=== PATIENT | female | born 1990 | race Caucasian/White ===

== ENCOUNTER 2016-11-10 15:23 | Emergency (ER) | payer OTHER ==
[~2016-11-10] VITALS: Ht 154.9 cm; Wt 63.5 kg
--- NOTE | 2016-11-10 15:34 | NUR ---
DR SAUCEDO TALKED TO PATIENT. PT IS AWAKE AND VERBALLY RESPONSIVE - REFUSING TO STAY AND BE EVALUATED. AFTER TALKING TO PT, STATED THAT IT WAS OK TO LET HER GO, SHE IS ALERT AT THE PRESENT TIME. PT WAS GIVEN A MS OF SOCKS REQUESTED BY PT - SHE WAS OTHERWISE WALKING BAREFOOT.
[2016-11-10 15:37] VITALS: BP 116/59
== END 2016-11-10 15:39 | disposition left against medical advice (07) ==
LOC: ER 15:23
DX: F18.10 Inhalant abuse, uncomplicated (principal); T65.91XA Toxic effect of unspecified substance, accidental (unintentional), initial encounter; Y92.89 Other specified places as the place of occurrence of the external cause
CPT/HCPCS: A4663

== ENCOUNTER 2017-01-26 18:34 | Inpatient (IN) | payer OTHER ==
[~2017-01-26] VITALS: Ht 152.4 cm; Wt 47.6 kg
[2017-01-26] MEDS ORDERED: LORAZEPAM 1 MG TABLET PO PRN ×2 (21:00)
[2017-01-26] MEDS ORDERED: CLONIDINE HCL 0.1 MG TABLET PO PRN (21:00)
[2017-01-26] MEDS ORDERED: THIAMINE HCL 200 MG/2 ML VIAL IM ONE (21:00)
[2017-01-26] MEDS ORDERED: HYDROXYZINE PAMOATE 25 MG CAPSULE PO PRN (21:00)
[2017-01-26] MEDS ORDERED: ONDANSETRON 4 MG/2 ML VIAL IM PRN (21:00)
[2017-01-26] MEDS ORDERED: MIRALAX 17 GM POWD.PACK PO PRN (21:00)
[2017-01-26] MEDS ORDERED: MAGNESIUM HYDROXIDE 30 ML LIQUID UDC PO PRN (21:00)
[2017-01-26] MEDS ORDERED: DICYCLOMINE HCL 20 MG TABLET PO PRN (21:00)
[2017-01-26] MEDS ORDERED: diphenhydrAMINE 50 MG CAPSULE PO PRN (21:00)
[2017-01-26] MEDS ORDERED: MAG HYDROX/AL HYDROX/SIMETH 30 ML LIQUID UDC PO PRN (21:00)
[2017-01-26] MEDS ORDERED: ONDANSETRON ODT 4 MG TAB.RAPDIS SL PRN (21:00)
[2017-01-26] MEDS ORDERED: LORAZEPAM 2 MG/1 ML VIAL IM PRN (21:00)
[2017-01-26] MEDS ORDERED: IBUPROFEN 400 MG TABLET PO PRN (21:00)
[2017-01-26] MEDS ORDERED: ACETAMINOPHEN 325 MG TABLET PO PRN (21:00)
[2017-01-26] MEDS ORDERED: LOPERAMIDE HCL 2 MG CAPSULE PO PRN ×2 (21:00)
--- NOTE | 2017-01-26 21:00 | NUR ---
PRN TYLENOL, SEROQUEL, ZOFRAN Pt. complains of sleeplessness, LB pain /, nausea. PRN TYLENOL, SEROQUEL, ZOFRAN given as ordered. Safety measures in place : bed on lowest position with side rails x2 up for safety, call light within reach. Will continue to monitor closely and offer help. Addendum: 01/27/17 at 0604 by ALIN GOODWIN RN Wrong time. Meds given at 22:00
--- NOTE | 2017-01-26 21:15 | NUR ---
PRE- ADMISSION NOTE Pt is a 26 y/o female who was found on the floor in the Intake Unit. Vitals signs taken right away : IC=487/56, HR=84, pulse is strong, RR=16, unlabored and even, Spo2=98% with RA, Temp=98.2. Pt. 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 Pt has NKA, FULL CODE, on Reg.diet, reported a PMH of anxiety, depression, Bipolar, LB pain because of the fall on 01/23/2017. Pt. was in [facility] today and in October 2016 in [facility] for OD, but not hospitalized. Pt. is able to provide urine for UDS.
--- NOTE | 2017-01-26 21:25 | NUR ---
RN note Seroquel Pt stated that she takes Seroquel 100 mg PO HS. Notified Dr. Man and ordered to continue the medication while inpatient.
[2017-01-26 21:41] LABS: BASOPHILS # (AUTO) 0.2 K/uL (0.0-8.0); BASOPHILS % (AUTO) 1.1 % (0.0-2.0); EOSINOPHILS % (AUTO) 0.1 % (0.0-7.0); HEMATOCRIT 40.6 % (37-47); HEMOGLOBIN 13.5 G/DL (12.0-16.0); LYMPHOCYTES # (AUTO) 2.7 K/UL (0.8-4.8); LYMPHOCYTES % (AUTO) 16.9 % (20.5-51.5); MEAN CORPUSCULAR HEMOGLOBIN 30.5 UUG (27.0-31.0); MEAN CORPUSCULAR HGB CONC 33 g/dL (32.0-37.0); MEAN CORPUSCULAR VOLUME 91.9 FL (81.0-99.0); MONOCYTES # (AUTO) 0.5 K/UL (0.1-1.30); MONOCYTES % (AUTO) 3.2 % (0.0-11.0); NEUTROPHILS # (AUTO) 12.5 K/UL (1.8-8.9); NEUTROPHILS % (AUTO) 78.7 % (38.5-71.5); PLATELET COUNT (AUTO) 236 K/UL (150-450); RED BLOOD CELL COUNT(AUTO) 4.42 MIL/UL (4.2-5.4); WHITE BLOOD COUNT (AUTO) 15.9 K/UL (4.0-11.2)
[2017-01-26 21:49] LABS: BILIRUBIN,TOTAL 0.3 mg/dL (0.2-1.0); CREATININE 0.8 mg/dL (0.6-1.3); MAGNESIUM 1.6 mg/dL (1.8-2.4); POTASSIUM 3.6 mmol/L (3.5-5.1); TOTAL PROTEIN, SERUM 7.6 g/dL (6.4-8.2)
[2017-01-26 21:57] LABS: *AMPHETAMINE, URINE NEGATIVE (NEGATIVE); *BARBITURATE, URINE NEGATIVE (NEGATIVE); *CANNABINOID, URINE NEGATIVE (NEGATIVE); *COCCAINE, URINE NEGATIVE (NEGATIVE); *OPIATE, URINE NEGATIVE (NEGATIVE); *PHENCYCLIDINE SCREEN,URINE NEGATIVE (NEGATIVE); THYROID STIMULATING HORMONE 0.366 mIU/mL (0.358-3.740)
[2017-01-26] MEDS: QUETIAPINE FUMARATE 100 MG TABLET PO SCH (22:03)
[2017-01-26] MEDS ORDERED: ACETAMINOPHEN 325 MG TABLET ONE (22:04)
[2017-01-26] MEDS ORDERED: ONDANSETRON ODT 4 MG TAB.RAPDIS ONE (22:04)
[2017-01-26] MEDS ORDERED: QUETIAPINE FUMARATE 100 MG TABLET ONE (22:05)
[2017-01-26] MEDS ORDERED: MAGNESIUM OXIDE 400 MG TABLET PO ONE (22:30)
--- NOTE | 2017-01-26 22:30 | NUR ---
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 Pt has NKA, FULL CODE, on Reg.diet, reported a PMH of anxiety, depression, Bipolar, LB pain because of the fall on 01/23/2017. Pt. was in ER [facility] today and in October 2016 in [facility] for OD, but not hospitalized. Pt denies having a primary care physician but reported having a psych doctor , who prescribed her [place], Prozac, Seroquel, she also denies vaccinations, believes it doesnt work. Pt arrived without medication from home . Upon assessment pt is a/o x 3, however pt is intoxicated aeb lingering odor of alcohol. Skin turgor indicates adequate hydration. PERRLA noted. Lung auscultations clear in all lobes. Vitals signs are as follows: BP: 106/56 HR: 84 T: 98.2 O2 Sat:98% RR=16 Breathing is even and unlabored. Bowel sounds present in all four quadrants, and abdomen is soft and non distended. Pt reported last having a bowel movement yesterday morning (01/25/17). At this time pt is calm and cooperative with plan of care. Pt has LB pain 11/29, because of fall on 01/23/2017. Pt was encouraged to notify staff of any changes in condition or of any concerns. Pt verbalized an understanding ,CIWA: 6. Body search done by CHEMICAL ANALYST, skin check done by female RN. Pt. arrives on wheelchair, oriented to the unit and her room, placed on 1:1 for unsteady gait. Safety measures in place : bed on lowest position with side rails x2 up for safety, call light within reach. Will continue to monitor closely and offer help. SUBSTANCE USE HISTORY : ETOH/RUM/VODKA 500ml QD PO last 12 mo., last use on 01/26/2017 , uses since 2006 DUST OFF 4cans QD inhales last 2 years, last use 01/26/2017, Uses since 2013 Pt. smokes 10 cigarettes daily Tx HISTORY : X14 Detox. facilities X14 Rehab. Facilities. Multiple hospitalizations because of OD. FAMILY HISTORY : Parents and two brothers are in a good health.
--- NOTE | 2017-01-26 23:00 | NUR ---
REASSESSMENT TYLENOL, SEROQUEL, ZOFRAN Pt. is sleeping, RR=16 , unlabored and even. Safety measures in place : bed on lowest position with side rails x2 up for safety, call light within reach. Will continue to monitor closely and offer help.
[2017-01-26] MEDS ORDERED: QUET100T PO (23:01)
[2017-01-26] MEDS ORDERED: LITH300C2 PO (23:01)
[2017-01-26] MEDS ORDERED: FLUO40CA8 PO (23:01)
[2017-01-26] MEDS ORDERED: LITH600C PO (23:01)
[2017-01-26] MEDS ORDERED: ACET-2154 PO (23:01)
[2017-01-26 23:23] LABS: *URINE HCG, QUAL NEGATIVE (NEGATIVE)
[2017-01-27] VITALS: BP 106/56
--- NOTE | 2017-01-27 | NUR ---
HISTORY OF SEIZURES Pt. stated to have multiple seizures due to "DUST OFF" OVERDOSES
[2017-01-27 04:00] VITALS: BP 90/51
--- NOTE | 2017-01-27 06:31 | NUR ---
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 Pt has NKA, FULL CODE, on Reg.diet, reported a PMH of anxiety, depression, Bipolar, LB pain because of the fall on 01/23/2017. Pt. reported having a psych doctor , who prescribed her [place], Prozac, Seroquel, she also denies vaccinations, believes it doesnt work. At this time pt is calm and cooperative with plan of care. Pt has LB pain 08/29, because of fall on 01/23/2017. Pt was encouraged to notify staff of any changes in condition or of any concerns. Pt verbalized an understanding , placed on 1:1 for unsteady gait. Pt remains compliant with the treatment plan. PRN ZOFRAN, TYLENOL given during my shift. V/S remain WNL. RR=16, even and unlabored, lungs clear upon auscultation, abdomen soft and non- distended. Pt denies nausea, vomiting and diarrhea. LAST CIWA= 6 at 0400 , SLMUBO=3855 ml, voided x1 , slept 7 hours. Safety measures in place : bed on lowest position with side rails x2 up for safety, call light within reach. Will continue to monitor closely and offer help.
--- NOTE | 2017-01-27 07:46 | NUR ---
Start of Shift Snack Bar Cook received report on 26 year old female admitted on 01/26/17 for Inhalant and ETOH detoxification. Pt has NKA, full code and regular diet. Reports PMH of Bipolar, Anxiety, Depression and complains of lower back pain related to fall 4 days ago. Pt has a history of seizures related to her inhalant use. Pt is currently on 1:1 status for fall precautions. Pt on fall and seizure precautions. Pt was administered Tylenol and Zofran during the NOC, per report. Snack Bar Cook encounters pt in her bed preparing to go to [facility]. Snack Bar Cook assessed pts ability to ambulate. Pt is has a steady gait and will no longer need 1:1 staffing, as witnessed by RENETTA Martinez. Pt is A/O and stating she feels much better then yesterday, my back is much better. Pt does endorse silly somewhat sick. Pt is calm and cooperative and makes needs known. Bed in low position, wheels locked, side rails up x2 and call light within reach. All safety measures in place according to hospital policy.
[2017-01-27] MEDS ORDERED: TUBERCULIN,PURIF.PROT.DERIV. 5 TU/0.1 ML TEST ID ONE (09:00)
[2017-01-27] MEDS: FOLIC ACID 1 MG TABLET PO SCH (09:21)
[2017-01-27] MEDS: THIAMINE HCL 100 MG TABLET PO SCH (09:22)
[2017-01-27] MEDS: MULTIVITAMINS,THERAPEUTIC TABLET PO SCH (09:22)
[2017-01-27 09:30] VITALS: BP 91/56
[2017-01-27] MEDS ORDERED: LORAZEPAM 1 MG TABLET PO PRN ×2 (10:15)
[2017-01-27] MEDS: FLUOXETINE HCL 20 MG CAPSULE PO SCH (10:46)
[2017-01-27] MEDS: LITHIUM CARBONATE 300 MG CAPSULE PO SCH (10:46)
[2017-01-27 13:05] VITALS: BP 106/55
[2017-01-27] MEDS: LORAZEPAM 1 MG TABLET PO SCH ×3 (13:53→21:00)
--- NOTE | 2017-01-27 14:07 | NUR ---
Therapist prompted client about group times. Client stated she wants to rest today.
[2017-01-27] MEDS: GABAPENTIN 300 MG CAPSULE PO SCH (16:26)
[2017-01-27 16:39] VITALS: BP 93/54
[2017-01-27 18:55] LABS: *BILIRUBIN,URIN NEGATIVE (NEGATIVE); *BLOOD, URINE 3+ (NEGATIVE); *CLARITY,URINE CLOUDY (CLEAR); *COLOR,URINE YELLOW (YELLOW); *KETONES,URINE NEGATIVE (NEGATIVE); *PROTEIN,URINE 1+ (NEGATIVE); *UROBILINOGEN,URINE 0.2 E.U./dl (NORMAL); LEUKOCYTE ESTERASE ,URINE 1+ (NEGATIVE); NITRITE, URINE NEGATIVE (NEGATIVE); UGLUCOSE NEGATIVE (NEGATIVE)
--- NOTE | 2017-01-27 19:08 | NUR ---
End of Shift Discotheque Dancer provided report on 26 year old female admitted on 01/26/17 for Inhalant and ETOH detoxification. No further comments questions or concerns voiced. Pt has NKA, full code and regular diet. Reports PMH of Bipolar, Anxiety, Depression and complains of lower back pain related to fall 4 days ago. Pt has a history of seizures related to her inhalant use. Pt on fall and seizure precautions. Pt is calm and cooperative and makes needs known. Pt questioned if Ativan made her more anxious and is going to monitor her response to next dose. Bed in low position, wheels locked, side rails up x2 and call light within reach. All safety measures in place according to hospital policy.
--- NOTE | 2017-01-27 19:09 | NUR ---
Start of shift note Received report from day shift nurse. Pt is a 26 yo F, A+Ox4, presenting to [facility] for ETOH dependence. Pt has NKA, is on Full code status, and on Regular diet. Pt is on Fall and Seizure precautions. Pt has HX of Seizure, Bipolar, Anxiety, Depression, and Lower back pain. Pt is on 5 day Ativan taper, tolerated well. No s/s of distress noted at this time. Respirations even and unlabored. Will continue to monitor.
[2017-01-27 19:16] LABS: BACTERIA,URINE MODERATE /HPF (NONE SEEN); SQUAMOUS EPITHELIAL CELL,UR MODERATE /HPF (NONE SEEN)
[2017-01-27 20:15] VITALS: BP 97/47
[2017-01-27] MEDS: NITROFURANTOIN/NITROFURAN MAC 100 MG CAPSULE PO SCH (21:00)
[2017-01-27] MEDS ORDERED: LITHIUM CARBONATE 300 MG CAPSULE PO SCH (21:00)
[2017-01-27] MEDS ORDERED: GABAPENTIN 300 MG CAPSULE PO SCH (21:00)
[2017-01-27] MEDS ORDERED: LITHIUM CARBONATE PO SCH (21:00)
[2017-01-27] MEDS: QUETIAPINE FUMARATE 100 MG TABLET PO SCH (21:00)
[2017-01-28 00:57] VITALS: BP 90/46
[2017-01-28 04:09] VITALS: BP 92/54
--- NOTE | 2017-01-28 06:53 | NUR ---
End of shift note Pt is a 26 yo Female, A+Ox4, presenting to [facility] for ETOH dependence. Pt has NKA, is on Full code status, and on Regular diet. Pt is on Fall and Seizure precautions. Pt has HX of Seizure, Bipolar, Anxiety, Depression, and Lower back pain. Pt is on 5 day Ativan taper, tolerated well. Pt slept for a total of 11 HRS. Last CIWA: 2 @0400. No s/s of distress noted at this time. Respirations even and unlabored. Will endorse to day shift nurse.
--- NOTE | 2017-01-28 07:44 | NUR ---
START OF SHIFT NOTE patient is alert and orientated X4. Vital signs are stable. Patient is awake walking around the unit this morning. Patient is on a 5 day ativan taper and tolerating well. Patient slept 11 hours per night nurse. Last CIWA 2 per night nurse with no PRNs given. All safety measures in place. Will continue to monitor.
[2017-01-28 07:49] LABS: BASOPHILS # (AUTO) 0.1 K/uL (0.0-8.0); BASOPHILS % (AUTO) 0.8 % (0.0-2.0); EOSINOPHILS # (AUTO) 0.2 K/uL (0.0-0.7); EOSINOPHILS % (AUTO) 2.9 % (0.0-7.0); HEMATOCRIT 42.1 % (37-47); HEMOGLOBIN 13.9 G/DL (12.0-16.0); LYMPHOCYTES # (AUTO) 2.1 K/UL (0.8-4.8); LYMPHOCYTES % (AUTO) 31.3 % (20.5-51.5); MEAN CORPUSCULAR HEMOGLOBIN 30.5 UUG (27.0-31.0); MEAN CORPUSCULAR HGB CONC 33 g/dL (32.0-37.0); MEAN CORPUSCULAR VOLUME 92.7 FL (81.0-99.0); MONOCYTES # (AUTO) 0.7 K/UL (0.1-1.30); MONOCYTES % (AUTO) 10.6 % (0.0-11.0); NEUTROPHILS # (AUTO) 3.5 K/UL (1.8-8.9); NEUTROPHILS % (AUTO) 54.4 % (38.5-71.5); PLATELET COUNT (AUTO) 190 K/UL (150-450); RED BLOOD CELL COUNT(AUTO) 4.54 MIL/UL (4.2-5.4); WHITE BLOOD COUNT (AUTO) 6.6 K/UL (4.0-11.2)
[2017-01-28 08:51] VITALS: BP 91/54
[2017-01-28] MEDS ORDERED: LORAZEPAM 1 MG TABLET PO SCH (09:00)
[2017-01-28] MEDS: MULTIVITAMINS,THERAPEUTIC TABLET PO SCH (09:25)
[2017-01-28] MEDS: FLUOXETINE HCL 20 MG CAPSULE PO SCH (09:25)
[2017-01-28] MEDS: LITHIUM CARBONATE 300 MG CAPSULE PO SCH (09:25)
[2017-01-28] MEDS: FOLIC ACID 1 MG TABLET PO SCH (09:25)
[2017-01-28] MEDS: THIAMINE HCL 100 MG TABLET PO SCH (09:25)
[2017-01-28] MEDS: GABAPENTIN 300 MG CAPSULE PO SCH (09:25)
[2017-01-28] MEDS: NITROFURANTOIN/NITROFURAN MAC 100 MG CAPSULE PO SCH (09:25)
--- NOTE | 2017-01-28 09:32 | NUR ---
PRN VISTARIL Patient having increased anxiety. patient crying and wanting to leave. Vistaril given. will continue to monitor.
--- NOTE | 2017-01-28 10:05 | NUR ---
PRN REASSESSMENT patient expresses a slight decrease in anxiety after Vistaril was given. Will continue to monitor
[2017-01-28 10:10] LABS: HEPATITIS B SURFACE AG Negative (Negative)
--- NOTE | 2017-01-28 11:30 | NUR ---
AMA NOTE Patient left AMA. patient refused to comply with treatment. patient educated about the risks and consequences of leaving AMA. Patient verbalized understanding but was adamant about leaving. Multiple staff members including Dr. Lopez, patient advocator, and nurses attempted to reason with the patient but was unsuccessful. Vital signs are within normal limits, skin intact, and patient denies any suicidal or homicidal ideations. Patient s psychiatrist and MD were notified and aware. Patient was given a list of community resources. AMA forms explained and signed. All belongings returned to the patient.Patient left the facility AMA on 01/28/17 at 11:30
[2017-01-29] MEDS ORDERED: LORAZEPAM 1 MG TABLET PO SCH (09:00)
[2017-01-30] MEDS ORDERED: LORAZEPAM 1 MG TABLET PO SCH (09:00)
[2017-01-31] MEDS ORDERED: LORAZEPAM 1 MG TABLET PO SCH (09:00)
== END 2017-01-28 13:30 | disposition left against medical advice (07) | DRG 894 ==
LOC: SRC 20:53
PROVIDERS: ADMIT Internal Medicine; ATTEND Internal Medicine
PROC: HZ2ZZZZ Detoxification Services for Substance Abuse Treatment (ICD-10-PCS; principal; 2017-01-26)
PROC: HZ31ZZZ Individual Counseling for Substance Abuse Treatment, Behavioral (ICD-10-PCS; 2017-01-27)
DX: F10.230 Alcohol dependence with withdrawal, uncomplicated (principal); F31.62 Bipolar disorder, current episode mixed, moderate; Y90.2 Blood alcohol level of 40-59 mg/100 ml; F18.10 Inhalant abuse, uncomplicated; Z59.0 Homelessness; F17.210 Nicotine dependence, cigarettes, uncomplicated; Z79.899 Other long term (current) drug therapy; F41.9 Anxiety disorder, unspecified; D72.829 Elevated white blood cell count, unspecified
CPT/HCPCS: 36415; 80307; 83690; 83735; 84443; 84703; 85025; 86580; 86592; 86705; 86803; 87086; 87340; 87806; G0480; J3411; Q0162

== ENCOUNTER 2017-01-28 19:41 | Inpatient (IN) | payer OTHER ==
[~2017-01-28] VITALS: Ht 152.4 cm; Wt 54.0 kg
[~2017-01-28 19:41] MED LIST: ACET-2154 PO; FLUO40CA8 PO; LITH300C2 PO; LITH600C PO
[2017-01-28 20:32] VITALS: BP 110/59
--- NOTE | 2017-01-28 20:32 | NUR ---
PRE-ADMISSION NOTE VS BP-110/59 T-97.8 P-85 R-16 PA-0/10. SpO2 AT 97% IN RA. PATIENT HAS NO ALLERGY TO FOOD OR MEDICATIONS. PATIENT REPORTS NO SEIZURE HISTORY. PATIENT ABLE TO ANSWERS QUESTIONS. PATIENT STATES SHE'S TIRED. PATIENT AMBULATORY AND GAIT STEADY. PATIENT DISCUSSED UNIT POLICIES, Q2 HOURS VS AND SMOKING POLICIES. WILL CONTINUE ADMISSION ON 3RD FLOOR.
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
[2017-01-28] MEDS ORDERED: diphenhydrAMINE 50 MG CAPSULE PO PRN (21:15)
[2017-01-28] MEDS ORDERED: CLONIDINE HCL 0.1 MG TABLET PO PRN (21:15)
[2017-01-28] MEDS ORDERED: HYDROXYZINE PAMOATE 25 MG CAPSULE PO PRN (21:15)
[2017-01-28] MEDS ORDERED: MIRALAX 17 GM POWD.PACK PO PRN (21:15)
[2017-01-28] MEDS ORDERED: MAGNESIUM HYDROXIDE 30 ML LIQUID UDC PO PRN (21:15)
[2017-01-28] MEDS ORDERED: ACETAMINOPHEN 325 MG TABLET PO PRN (21:15)
[2017-01-28] MEDS ORDERED: LORAZEPAM 1 MG TABLET PO PRN ×2 (21:15)
[2017-01-28] MEDS ORDERED: MAG HYDROX/AL HYDROX/SIMETH 30 ML LIQUID UDC PO PRN (21:15)
[2017-01-28] MEDS ORDERED: LORAZEPAM 2 MG/1 ML VIAL IM PRN (21:15)
[2017-01-28] MEDS ORDERED: DICYCLOMINE HCL 20 MG TABLET PO PRN (21:15)
[2017-01-28] MEDS ORDERED: ONDANSETRON ODT 4 MG TAB.RAPDIS SL PRN (21:15)
[2017-01-28] MEDS ORDERED: LOPERAMIDE HCL 2 MG CAPSULE PO PRN ×2 (21:15)
[2017-01-28] MEDS ORDERED: IBUPROFEN 400 MG TABLET PO PRN (21:15)
[2017-01-28] MEDS ORDERED: THIAMINE HCL 200 MG/2 ML VIAL IM ONE (21:15)
[2017-01-28] MEDS ORDERED: ONDANSETRON 4 MG/2 ML VIAL IM PRN (21:15)
--- NOTE | 2017-01-28 21:15 | NUR ---
THIAMINE INJECTION REFUSED PATIENT REFUSED THIAMINE INJECTION. EXPLAINED RISKS/BENEFITS BUT STILL REFUSED. WILL CONTINUE TO MONITOR
--- NOTE | 2017-01-28 21:15 | NUR ---
RN note HCG Qual Urine test was not ordered because patient was here as an admission last 01/26/2017 and tested negative for the test.
[2017-01-28 22:04] LABS: ETHANOL < 3 MG/DL (0-0)
[2017-01-28 22:05] LABS: BASOPHILS # (AUTO) 0.1 K/uL (0.0-8.0); BASOPHILS % (AUTO) 0.6 % (0.0-2.0); EOSINOPHILS # (AUTO) 0.2 K/uL (0.0-0.7); EOSINOPHILS % (AUTO) 1.9 % (0.0-7.0); HEMATOCRIT 40.8 % (37-47); HEMOGLOBIN 13.6 G/DL (12.0-16.0); LYMPHOCYTES # (AUTO) 2.9 K/UL (0.8-4.8); LYMPHOCYTES % (AUTO) 28.6 % (20.5-51.5); MEAN CORPUSCULAR HEMOGLOBIN 31.1 UUG (27.0-31.0); MEAN CORPUSCULAR HGB CONC 33 g/dL (32.0-37.0); MEAN CORPUSCULAR VOLUME 93.1 FL (81.0-99.0); MONOCYTES % (AUTO) 9.6 % (0.0-11.0); NEUTROPHILS # (AUTO) 5.8 K/UL (1.8-8.9); NEUTROPHILS % (AUTO) 59.3 % (38.5-71.5); PLATELET COUNT (AUTO) 186 K/UL (150-450); RED BLOOD CELL COUNT(AUTO) 4.39 MIL/UL (4.2-5.4)
[2017-01-28 22:09] LABS: ALANINE AMINOTRANSFERASE 24 U/L (14-59); ALKALINE PHOSPHATASE 82 U/L (50-136); AMYLASE 41 U/L (25-115); ASPARTATE AMINOTRANSFERASE 21 U/L (15-37); BILIRUBIN,TOTAL 0.2 mg/dL (0.2-1.0); CARBON DIOXIDE 30 mmol/L (21-32); CHLORIDE 103 mmol/L (98-107); CREATININE 0.9 mg/dL (0.6-1.3); GLUCOSE 131 mg/dL (74-106); LIPASE 175 U/L (73-393); MAGNESIUM 1.9 mg/dL (1.8-2.4); POTASSIUM 3.4 mmol/L (3.5-5.1); TOTAL PROTEIN, SERUM 7.1 g/dL (6.4-8.2); UREA NITROGEN, BLOOD 12 mg/dL (7-18)
[2017-01-28 22:34] LABS: THYROID STIMULATING HORMONE 2.152 mIU/mL (0.358-3.740)
[2017-01-29] VITALS: BP 96/51
[2017-01-29 04:00] VITALS: BP 90/56
[2017-01-29 04:56] LABS: *AMPHETAMINE, URINE NEGATIVE (NEGATIVE); *BARBITURATE, URINE NEGATIVE (NEGATIVE); *CANNABINOID, URINE NEGATIVE (NEGATIVE); *COCCAINE, URINE NEGATIVE (NEGATIVE); *OPIATE, URINE NEGATIVE (NEGATIVE); *PHENCYCLIDINE SCREEN,URINE NEGATIVE (NEGATIVE)
--- NOTE | 2017-01-29 07:14 | NUR ---
END OF SHIFT PATIENT HAD UNEVENTFUL EVENT. PATIENT SLEPT 8 HOURS. FLUID INTAKE 1,328 ML .VOIDED X 3 . BM. PATIENT DID NOT REQUIRE ANY PRN MEDICATION. LAST CIWA 2. PATIENT REFUSED THIAMINE INJECTION. PATIENT'S POTASSIUM LEVEL 3.5, WILL START POTASSIUM CHLORIDE IN AM. ON FALL/SEIZURE PRECAUTION. SAFETY MEASURES IN PLACE. CALL LIGHT IN REACH. WILL CONTINUE TO MONITOR. Addendum: 01/29/17 at 0723 by JACOB FRASER LVN POTASSIUM LEVEL 3.4. LAST CIWA 2.
--- NOTE | 2017-01-29 07:40 | NUR ---
Upon arrival to unit patient expressed the desire "to leave." After multiple attempts by staff to convince her to stay, she elected to leave [facility]. AMA form signed and a list of community resources given. Pt left in stable condition with all belongings. Addendum: 01/29/17 at 0838 by MANUELA GRIJALVA RN Pt denied Hi/SI to nurse
[2017-01-29] MEDS ORDERED: POTASSIUM CHLORIDE 20 MEQ TAB.PRT.SR PO ONE (09:00)
[2017-01-29] MEDS ORDERED: TUBERCULIN,PURIF.PROT.DERIV. 5 TU/0.1 ML TEST ID ONE (09:00)
[2017-01-29] MEDS ORDERED: THIAMINE HCL 100 MG TABLET PO SCH (09:00)
[2017-01-29] MEDS ORDERED: MULTIVITAMINS,THERAPEUTIC TABLET PO SCH (09:00)
[2017-01-29] MEDS ORDERED: FOLIC ACID 1 MG TABLET PO SCH (09:00)
[2017-01-30 12:08] LABS: HEPATITIS B SURFACE AG Negative (Negative)
== END 2017-01-29 07:54 | disposition left against medical advice (07) | DRG 894 ==
LOC: SRC 20:17
PROVIDERS: ADMIT Internal Medicine; ATTEND Internal Medicine
PROC: HZ2ZZZZ Detoxification Services for Substance Abuse Treatment (ICD-10-PCS; principal; 2017-01-28)
DX: F10.239 Alcohol dependence with withdrawal, unspecified (principal); Y90.9 Presence of alcohol in blood, level not specified; F18.10 Inhalant abuse, uncomplicated; F31.9 Bipolar disorder, unspecified; F41.9 Anxiety disorder, unspecified; Z59.0 Homelessness; F17.210 Nicotine dependence, cigarettes, uncomplicated; D72.829 Elevated white blood cell count, unspecified
CPT/HCPCS: 36415; 80307; 83690; 83735; 84443; 85025; 86592; 86705; 86803; 87340; 87806; G0480

== ENCOUNTER 2017-01-29 09:15 | Emergency (ER) | payer OTHER ==
[~2017-01-29] VITALS: Ht 152.4 cm; Wt 49.9 kg
--- NOTE | 2017-01-29 09:28 | NUR ---
DR CALLAWAY AT THE BEDSIDE FO R EVAL AND EXAM.
[2017-01-29 09:51] VITALS: BP 112/60
--- NOTE | 2017-01-29 09:52 | NUR ---
Patient given written and verbal discharge instructions. Patient verbalizes understanding of instructions. Patient is ambulatory with steady gait. Refuses offer of longterm placement. Patient given list of available shelters in surrounding area.
== END 2017-01-29 09:52 | disposition home or self-care (01) ==
LOC: ER 09:15
DX: F18.10 Inhalant abuse, uncomplicated (principal); Z59.0 Homelessness
CPT/HCPCS: A4663

== ENCOUNTER 2017-01-29 10:35 | Emergency (ER) | payer OTHER ==
[~2017-01-29] VITALS: Ht 160 cm; Wt 49.9 kg
--- NOTE | 2017-01-29 10:45 | NUR ---
CALLED [facility] PER PT REQUEST TO RE ADMIT, AWAITING CALL BACK.
--- NOTE | 2017-01-29 10:59 | NUR ---
ABHILASHD informed patient she could go outside and smoke.
--- NOTE | 2017-01-29 11:40 | NUR ---
Patient eloped from facility. ER physician notified.
== END 2017-01-29 11:40 | disposition left against medical advice (07) ==
LOC: ER 10:35
DX: F18.10 Inhalant abuse, uncomplicated (principal); Z59.0 Homelessness; F32.9 Major depressive disorder, single episode, unspecified; F41.9 Anxiety disorder, unspecified
CPT/HCPCS: A4663